=== PATIENT | male | born 1955 | race Caucasian/White ===

== ENCOUNTER 2019-07-04 14:04 | Observation (INO) | payer BC, OTHER ==
[2019-07-04] MEDS ORDERED: NS 0.9% 1000 ML** 1,000 ML IV ONE (14:10)
[2019-07-04] MEDS ORDERED: Iodixanol* (CONTRAST) 320 MG/ML 100 ML SDV IV ONE (14:30)
[2019-07-04 14:36] LABS: ABS Basophils 0.1 10^3/ul (0-0.2); ABS Eosinophils 0.1 10^3/ul (0-0.6); ABS Lymphocytes 2.1 10^3/ul (1.0-4.8); ABS Monocytes 0.8 10^3/ul (0-0.8); ABS Neutrophils 3.1 10^3/ul (1.5-7.7); Eosinophil % 2.4 %; Hematocrit 44 % (42-52); Hemoglobin 14.5 g/dL (14.0-18.0); Lymphocyte % 33.7 %; Mean Corpuscular HGB Conc 33 g/dL (31-36); Mean Corpuscular Hemoglobin 29 pg (27-31); Mean Corpuscular Volume 86 fL (80-94); Mean Platelet Volume 8.3 fL (7.4-10.4); Nucleated Red Blood Cells % 0.1; Platelet Count 286 10^3/uL (150-450); Red Blood Count 5.06 10^6 /uL (4.18-5.48); Red Cell Distribution Width 15 % (10-15); White Blood Count 6.1 10^3/uL (3.5-10.8)
[2019-07-04 14:44] LABS: Activated Partial Thrombo Time 36.2 seconds (26.0-38.0); INR 0.96 (0.82-1.09)
[2019-07-04] MEDS ORDERED: Clopidogrel TAB* 75 MG PO ONE (14:47)
[2019-07-04] MEDS ORDERED: Aspirin 81 mg CHEW TAB* 81 MG TAB.CHEW PO ONE (14:47)
[2019-07-04 14:54] LABS: Albumin 4.6 g/dL (3.2-5.2); Albumin/Globulin Ratio 1.8 (1-3); BUN/Creatinine Ratio 18.4 (8-20); EGFR African American 107.9 (>60); EGFR Non-African American 89.2 (>60); Globulin 2.5 g/dL (2-4); HDL Cholesterol 46.6 mg/dL; Potassium 3.7 mmol/L (3.5-5.0); Total Bilirubin 0.4 mg/dL (0.2-1.0); Total Protein 7.1 g/dL (6.4-8.9)
--- NOTE | 2019-07-04 15:19 | ED ---
Neurological HPI - HPI Summary HPI Summary: Patient is a 63 y/o M presenting to the ED for a chief complaint of neurological deficit. Patient states that he was at lunch with his friends when around 13:30, he began to see "stars" in his peripheral vision and had left- sided facial numbness and pressure. He states his symptoms had a sudden onset and felt like a "burst." Patient denies any myalgia, headache, numbness, paresthesia, or weakness in any of his extremities. Any aggravating or alleviating factors are denied. 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 FMHx is significant for factor 5 leiden. He reports he is supposed to take aspirin, but he denies taking aspirin. Patient denies taking any new medications. Allergies noted. Medications reviewed. - History of Current Complaint Chief Complaint: EDNeurologicalDeficit Stated Complaint: STROKE LIKE SYMPTOMS Hx Obtained From: Patient Onset/Duration: Sudden Onset, Started minutes ago - 45 minutes PHARMACIST'S AIDE Timing: Sudden Onset Onset Severity: Moderate Current Severity: Moderate Neurological Deficit Location: Facial Pain Intensity: 0 Pain Scale Used: 0-10 Numeric Character: Numbness/Tingling - Left sided facial Aggravating: Nothing Alleviating: Nothing Associated Signs and Symptoms: Positive: Visual Changes - "Stars" in left peripheral vision, Numbness - Left sided facial TPA Considered: No - Allergy/Home Medications Allergies/Adverse Reactions: Allergies Allergy/AdvReac Type Severity Reaction Status Date / Time No Known Allergies Allergy Verified 07/04/19 14:30 Home Medications: Home Medications Ibuprofen TAB* [Advil TAB*] 200 mg PO Q6H PRN 07/04/19 [History Confirmed ] PMH/Surg Hx/FS Hx/Imm Hx Previously Healthy: Yes Endocrine/Hematology History: Denies: Hx Anticoagulant Therapy Sensory History: Denies: Hx Legally Blind, Hx Deafness Opthamlomology History: Denies: Hx Legally Blind EENT History: Denies: Hx Deafness Neurological History: Reports: Other Neuro Impairments/Disorders - Sixth cranial nerve infection - Surgical History Surgical History: None Surgery Procedure, Year, and Place: None Infectious Disease History: No Infectious Disease History: Denies: Traveled Outside the [place] in Last 30 Days - Family History Known Family History: Positive: Other - Factor 5 leiden - Social History Occupation: Employed Full-time Lives: With Family Alcohol Use: Occasionally Hx Substance Use: No Substance Use Type: Reports: None Hx Tobacco Use: Yes Smoking Status (MU): Former Smoker Review of Systems Positive: Other - Positive "stars" in left peripheral vision Negative: Myalgia Positive: Numbness - Left sided facial. Negative: Headache, Weakness, Paresthesia All Other Systems Reviewed And Are Negative: Yes Physical Exam - Summary Physical Exam Summary: Constitutional: Well-developed, Well-nourished, Alert. (-) Distressed Skin: Warm, Dry HENT: Normocephalic; Atraumatic Eyes: Conjunctiva normal Neck: Musculoskeletal ROM normal neck. (-) JVD, (-) Stridor, (-) Tracheal deviation Cardio: Rhythm regular, rate normal, Heart sounds normal; Intact distal pulses. Radial pulses are 2+ and symmetric. (-) Murmur Pulmonary/Chest wall: Effort normal. (-) Respiratory distress, (-) Wheezes, (-) Rales Abd: Soft. (-) Tenderness, (-) Distension, (-) Guarding, (-) Rebound Musculoskeletal: (-) Edema Lymph: (-) Cervical adenopathy Neuro: Alert, Oriented x3, Strength normal, Cranial nerves II-XII are grossly intact. (-) Dysmetria, (-) Nystagmus, (-) Ataxia by finger to nose testing, (-) Sensory deficit. Psych: Mood and affect Normal Triage Information Reviewed: Yes Vital Signs On Initial Exam: Initial Vitals Temp Pulse Resp BP Pulse Ox 98 F 55 16 141/93 96 07/04/19 14:28 07/04/19 14:28 07/04/19 14:28 07/04/19 14:28 07/04/19 14:28 Vital Signs Reviewed: Yes Procedures - Sedation Patient Received Moderate/Deep Sedation with Procedure: No Diagnostics - Vital Signs Vital Signs Temp Pulse Resp BP Pulse Ox 07/04/19 14:32 95 07/04/19 14:28 98 F 55 16 141/93 96 - Laboratory Lab Results: Lab Results 07/04/19 07/04/19 07/04/19 Range/Units 14:11 14:20 14:20 WBC 6.1 (3.5-10.8) 10^3/uL RBC 5.06 (4.18-5.48) 10^6 /uL Hgb 14.5 (14.0-18.0) g/dL Hct 44 (42-52) % MCV 86 (80-94) fL MCH 29 (27-31) pg MCHC 33 (31-36) g/dL RDW 15 (10-15) % Plt Count 286 (150-450) 10^3/uL MPV 8.3 (7.4-10.4) fL Neut % (Auto) 50.4 % Lymph % (Auto) 33.7 % Kidder % (Auto) 12.3 % Eos % (Auto) 2.4 % Baso % (Auto) 1.2 % Absolute Neuts (auto) 3.1 (1.5-7.7) 10^3/ul Absolute Lymphs (auto) 2.1 (1.0-4.8) 10^3/ul Absolute Monos (auto) 0.8 (0-0.8) 10^3/ul Absolute Eos (auto) 0.1 (0-0.6) 10^3/ul Absolute Basos (auto) 0.1 (0-0.2) 10^3/ul Absolute Nucleated RBC 0.0 10^3/ul Nucleated RBC % 0.1 ESR Pending INR (Anticoag Therapy) 0.96 (0.82-1.09) APTT 36.2 (26.0-38.0) seconds Sodium (135-145) mmol/L Potassium (3.5-5.0) mmol/L Chloride (101-111) mmol/L Carbon Dioxide (22-32) mmol/L Anion Gap (2-11) mmol/L BUN (6-24) mg/dL Creatinine (0.67-1.17) mg/dL Est GFR ( Amer) (>60) Est GFR (Non-Af Amer) (>60) BUN/Creatinine Ratio (8-20) Glucose (70-100) mg/dL POC Glucose (mg/dL) 123 H (70-100) mg/dL Lactic Acid (0.5-2.0) mmol/L Calcium (8.6-10.3) mg/dL Total Bilirubin (0.2-1.0) mg/dL AST (13-39) U/L ALT (7-52) U/L Alkaline Phosphatase (34-104) U/L Troponin I (<0.03) ng/mL Total Protein (6.4-8.9) g/dL Albumin (3.2-5.2) g/dL Globulin (2-4) g/dL Albumin/Globulin Ratio (1-3) Triglycerides mg/dL Cholesterol mg/dL LDL Cholesterol mg/dL LDL Cholesterol Direct HDL Cholesterol mg/dL 07/04/19 07/04/19 Range/Units 14:20 14:20 WBC (3.5-10.8) 10^3/uL RBC (4.18-5.48) 10^6 /uL Hgb (14.0-18.0) g/dL Hct (42-52) % MCV (80-94) fL MCH (27-31) pg MCHC (31-36) g/dL RDW (10-15) % Plt Count (150-450) 10^3/uL MPV (7.4-10.4) fL Neut % (Auto) % Lymph % (Auto) % Kidder % (Auto) % Eos % (Auto) % Baso % (Auto) % Absolute Neuts (auto) (1.5-7.7) 10^3/ul Absolute Lymphs (auto) (1.0-4.8) 10^3/ul Absolute Monos (auto) (0-0.8) 10^3/ul Absolute Eos (auto) (0-0.6) 10^3/ul Absolute Basos (auto) (0-0.2) 10^3/ul Absolute Nucleated RBC 10^3/ul Nucleated RBC % ESR INR (Anticoag Therapy) (0.82-1.09) APTT (26.0-38.0) seconds Sodium 138 (135-145) mmol/L Potassium 3.7 (3.5-5.0) mmol/L Chloride 103 (101-111) mmol/L Carbon Dioxide 27 (22-32) mmol/L Anion Gap 8 (2-11) mmol/L BUN 16 (6-24) mg/dL Creatinine 0.87 (0.67-1.17) mg/dL Est GFR ( Amer) 107.9 (>60) Est GFR (Non-Af Amer) 89.2 (>60) BUN/Creatinine Ratio 18.4 (8-20) Glucose 87 (70-100) mg/dL POC Glucose (mg/dL) (70-100) mg/dL Lactic Acid 1.7 (0.5-2.0) mmol/L Calcium 9.0 (8.6-10.3) mg/dL Total Bilirubin 0.40 (0.2-1.0) mg/dL AST 19 (13-39) U/L ALT 18 (7-52) U/L Alkaline Phosphatase 62 (34-104) U/L Troponin I 0.00 (<0.03) ng/mL Total Protein 7.1 (6.4-8.9) g/dL Albumin 4.6 (3.2-5.2) g/dL Globulin 2.5 (2-4) g/dL Albumin/Globulin Ratio 1.8 (1-3) Triglycerides 425 mg/dL Cholesterol 223 mg/dL LDL Cholesterol mg/dL LDL Cholesterol Direct Pending HDL Cholesterol 46.6 mg/dL Result Diagrams: 07/04/19 14:20 07/04/19 14:20 Lab Statement: Any lab studies that have been ordered have been reviewed, and results considered in the medical decision making process. - Radiology Chest X-ray Radiology Interpretation Completed By: Radiologist Summary of Radiographic Findings: Chest X-ray IMPRESSION: NO ACTIVE CARDIOPULMONARY DISEASE. Reviewed by Dr. Issa. - CT Brain CT CT Interpretation Completed By: Radiologist Summary of CT Findings: Brain CT IMPRESSION: 1. NO ACUTE INTRACRANIAL PATHOLOGY. 2. MILD SINUS MUCOSAL INFLAMMATORY DISEASE, WITH AIR-FLUID LEVELS IN THE MAXILLARY SINUSES BILATERALLY. IN THE CORRECT CLINICAL SETTING, THIS MAY REPRESENT ACUTE SINUSITIS. Reviewed by Dr. Issa. Head CTA CT Interpretation Completed By: Radiologist Summary of CT Findings: Head CTA IMPRESSION: 1. No acute intracranial abnormality (MRI is more sensitive for acute infarct). 2. No large vessel occlusion or severe stenosis in the head or neck. 3. 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 4. Anatomic variants as above. Reviewed by Dr. Issa. - EKG 14:28 Cardiac Rate: Bradycardia - 55 BPM EKG Rhythm: Sinus Bradycardia ST Segment: Normal Ectopy: None Summary of EKG Findings: EKG at 14:28 shows sinus bradycardia with 55 BPM, no ischemic changes, no STEMI. Reviewed and interpreted by Dr. Issa. NIH Scale - NIH Scale Level of Consciousness: Alert/Keenly Responsive Ask Patient the Month and His/Her Age: Both Correct Ask Pt to Open/Close Eyes and Wafer Polisher/Release Non-Paretic Hand: Both Correctly Best Gaze (Only Horizontal Eye Movement): Normal Visual Field Testing: No Visual Loss Facial Paresis-Pt to Smile & Close Eyes or Grimace Symmetry: Normal/Symmetrical Motor Function - Right Arm: No Drift-Holds 10 Seconds Motor Function - Left Arm: No Drift-Holds 10 Seconds Motor Function - Right Leg: No Drift-Holds 10 Seconds Motor Function - Left Leg: No Drift-Holds 10 Seconds Limb Ataxia-Must be out of Proportion to Weakness Present: Absent Sensory (Use Pinprick to Test Arms/Legs/Trunk/Face): Normal Best Language (Describe Picture, Name Items): No Aphasia Dysarthria (Read Several Words): Normal Extinction and Inattention: No Abnormality Total Score: 0 Course/Dx - Course Course Of Treatment: Patient is here 45 minutes after a possible TIA. Patient had peripheral vision deficits on the left side with left facial pressure. Patient had an NIH scale 0 upon arrival. Patient had a CT brain and CTA which were both negative for anything abnormal outside of a 1 mm aneurysm. Patient was seen by neurology who wanted patient admitted for further workup. - Diagnoses Provider Diagnoses: CVA (cerebral vascular accident), Peripheral visual field defect During the Visit The Following Alert/Code Occurred: Modesto Bhatia - [facility] AT [facility]. LAST KNOWN WELL TIME IS 13:30 ON 07/04/19. MODESTO BHATIA CALLED 14:[address] ISSA PRESENT TO ASSESS THE PATIENT AT 14:06. AT 14:09, DR. DAWKINS IS PRESENT TO ASSESS THE PATIENT. AT 14:11, PATIENT IS TAKEN TO THE CT SUITE. AT 14:23, DR. PAINTING RECOMMENDS CITRATE LEVEL, MRI, ECHOCARDIOGRAM, AND VENOUS DOPPLER STUDY. HE ALSO RECOMMENDS PLAVIX AND ASPIRIN. PATIENT IS NOT ON BLOOD THINNERS. AT 14:58, RADIOLOGY REPORTED CT RESULTS. TPA CANDIDATE? NO. REASON: NIH STROKE SCALE IS 0. - Physician Notifications Discussed Care Of Patient With: Chrissie Wang - At 15:06, Dr. Wang agrees to admit the patient to [facility]. AT 14:23, DR. PAINTING RECOMMENDS CITRATE LEVEL, MRI , ECHOCARDIOGRAM, AND VENOUS DOPPLER STUDY. HE ALSO RECOMMENDS PLAVIX AND ASPIRIN. PATIENT IS NOT ON BLOOD THINNERS. Time Discussed With Above Provider: 15:06 Instructed by Provider To: Admit As Inpatient Discharge ED - Sign-Out/Discharge Documenting (check all that apply): Patient Departure - Admit - Discharge Plan Condition: Stable Disposition: ADMITTED TO [facility] - Billing Disposition and Condition Condition: STABLE Disposition: Admitted to [facility] - Attestation Statements Document Initiated by Scribe: Yes Documenting Scribe: Gena Cotto Provider For Whom Scribe is Documenting (Include Credential): Nixon Issa MD Scribe Attestation: Gena De Leon scribed for Nixon Issa MD on 07/04/19 at 1734. Scribe Documentation Reviewed: Yes Provider Attestation: The documentation as recorded by the Gena moran accurately reflects the service I personally performed and the decisions made by Nixon soto MD Status of Scribe Document: Viewed
[2019-07-04 16:02] LABS: Urine Appearance Clear; Urine Bilirubin Negative (Negative); Urine Blood Negative (Negative); Urine Color Straw; Urine Glucose Negative (Negative); Urine Ketones Negative (Negative); Urine Nitrite Negative (Negative); Urine Protein Negative (Negative); Urine Specific Gravity 1.032 (1.010-1.030); Urine Urobilinogen Negative (Negative)
[2019-07-04] MEDS ORDERED: Ondansetron INJ* 2 MG/ML VIAL IV PRN (16:18)
[2019-07-04] MEDS ORDERED: Acetaminophen TAB* 325 MG PO PRN (16:18)
[2019-07-04 17:18] LABS: Erythrocyte Sed Rate 1 mm/Hr (0-19)
--- NOTE | 2019-07-04 17:26 | CONS ---
CONSULTATION REPORT: DATE OF CONSULT: 07/04/19 PATIENT OF: Dr. Palacios as well as Dr. Lee. HISTORY OF PRESENT ILLNESS: This is a 63-year-old right-handed man I am asked to evaluate for possible TIA. At about 1:20 this afternoon, out of the blue he developed sparkling in his left visual field. He thinks both eyes, but it is not clear. He had a warmth feeling over his body and a pressure headache in the right side. These symptoms lasted less than 10 minutes and he is back to normal since. His history is significant for factor V Leiden deficiency with both parents dying of pulmonary embolus from a DVT at different ages. He had a deep vein thrombosis in 2012. 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 PAST MEDICAL HISTORY: He is otherwise in good health. PAST SURGICAL HISTORY: There have been no surgeries. MEDICATIONS: He is supposed to be on aspirin, but does not take it. ALLERGIES: He has no known allergies. SOCIAL HISTORY: He does not smoke, drink, or use any illicit substances. REVIEW OF SYSTEMS: His review of systems in all 14 spheres is negative other than the HPI. PHYSICAL EXAM: He is afebrile, pulse of 80, respirations 16, blood pressure has not been entered yet. On exam, he had NIH Stroke Scale of 0 done at 2:30. He was alert and oriented with normal speech and comprehension. He had normal visual victor, but he had subjectively off to the far left a feeling that things were not quite as sharp. 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 Cranial nerves II through XII were normal other than the slight subjective blurriness off to his far peripheral vision. He had no temporal tenderness. Motor exam revealed normal tone, strength, coordination. Reflexes were 1+ and equal with downgoing toes. Sensation intact to light touch and double simultaneous stimulation. [id number] and [id number] were intact. Chest: Clear. Cardiovascular: Regular rate and rhythm. Abdomen is soft with positive bowel sounds. DIAGNOSTIC STUDIES/LAB DATA: His CT and CTA head and neck were normal. Labs are pending. I have asked for a sed rate to be added. IMPRESSION AND PLAN: I discussed with Minor that he has had new onset of focal neurological symptoms consisting of sparkling in his left visual field, which most likely represents transient dysfunction of his right occipital lobe. At his age, this is more likely ischemic rather than migrainous especially since he has no prior history of migraines and he has not been on anything that would have provoked a migrainous headache. Especially with his history of factor V Leiden deficiency and a past deep vein thrombosis, we are starting him on aspirin and Plavix following a swallowing eval, and he will have a workup including echo with bubble study and screening him for deep vein thrombosis. He will also have an MRI scan. I would have him on aspirin and Plavix for a month and then have him on just aspirin. There has been no history of atrial fibrillation. [id number]/[facility] #: [id number] LORRAINE
--- NOTE | 2019-07-04 17:46 | ECHO ---
*[facility]* [place] [address] Fax #: [phone] Transthoracic Echocardiogram Patient: Minor Camejo : 1955 Study Date: 07/04/2019 Age: 63 Gender: M HR: 46 bpm Height: 70 in /177.8 cm BSA: 2.1 m^2 Weight: 201.6 lb /91.6 kg BMI: 29 kg/m^2 *Purchasing Internship: * [facility] *Referring Physician: * Nixon Lugo *Reading Physician: * Juan R Luu MD Indications: CVA. History: No known cardiac history. Conclusions Summary: - Left ventricle: Systolic function is normal. The estimated ejection fraction is 60-65%. - Atrial septum: A PFO is not demonstrated by color Doppler or agitated saline contrast. - Mitral valve: There is trace regurgitation. - Aortic valve: There is trace regurgitation. Study data: Transthoracic echocardiogram. Procedure: Transthoracic echocardiography was performed. Image quality was fair. A bubble study was performed. Complete 2D, spectral Doppler, and color flow Doppler. Location: Emergency department. Patient status: Inpatient. Patient room number: ED-05. No prior study is available for comparison. Rhythm: Bradycardia. Findings Left ventricle: The cavity size is normal. Wall thickness is at the upper limits of normal. Systolic function is normal. The estimated ejection fraction is 60-65%. Wall motion is normal; there are no regional wall motion abnormalities. There is no consistent Doppler evidence of clinically significant diastolic dysfunction. Right ventricle: The cavity size is moderately dilated. Systolic function is normal. Ventricular septum: The outflow septum has a sigmoid appearance. Left atrium: The atrium is normal in size. Right atrium: The atrium is at the upper limits of normal in size. Atrial septum: A PFO is not demonstrated by color Doppler or agitated saline contrast. Negative Bubble Study. Images 94 and 95. Mitral valve: The leaflets are mildly thickened. There is no evidence of stenosis. There is trace regurgitation. Aortic valve: The valve is trileaflet. The leaflets are normal thickness. There is no evidence of stenosis. There is trace regurgitation. Tricuspid valve: The leaflets are normal thickness. There is no evidence of stenosis. There is physiologic regurgitation. Pulmonic valve: The leaflets are normal thickness. There is no evidence of stenosis. There is trace regurgitation. Aorta: Aortic root: The aortic root is appears normal. Ascending aorta: The ascending aorta is appears normal. Aortic arch: The aortic arch is appears normal. Pericardium: There is no significant pericardial effusion. Pulmonary arteries: The main pulmonary artery is normal-sized. Systolic pressure can not be accurately estimated. Systemic veins: Inferior vena cava: The vessel is normal in size. There is (>= 50%) respiratory change in the IVC dimension. Measurements Left ventricle Value Ref Aortic valve Value Ref BARBARA, LAX 4.5 cm 4.2 - 5.8 Romi diam, ED 2.3 cm ---- ESD, LAX 2.5 cm 2.5 - 4.0 Peak v, S 1.76 m/sec ---- FS, LAX (H) 48 % 25 - 43 VTI, S 33.3 cm ---- PW, ED, LAX 1.0 cm 0.6 - 1.0 Mean grad, S 6.0 mm Hg ---- FS (H) 48 % 25 - 43 Peak grad, S 12.0 mm Hg ---- PW, ED 1.0 cm 0.6 - 1.0 LVOT/AV, VTI ratio 0.78 ---- E', lat romi, TDI 11.7 cm/sec >=10.0 E/e', lat romi, 7 Mitral valve Value Ref TDI Peak E 0.83 m/sec ---- E', med romi, TDI (L) 6.6 cm/sec >=7.0 Peak A 0.7 m/sec -- -- E/e', med romi, 13 Decel time 197 ms ---- TDI Peak grad, D 2.8 mm Hg ---- E', avg, TDI 9.2 cm/sec Peak E/A ratio 1.2 ---- E/e', avg, TDI 9 <=14 Pulmonic valve Value Ref LVOT Value Ref Peak v, S 1.09 m/sec ---- Peak anette, S 1.36 m/sec Peak grad, S 5.0 mm Hg ---- VTI, S 26.0 cm Peak grad, S 7 mm Hg Aortic root Value Ref Mean grad, S 4 mm Hg Root diam 3.2 cm <4.2 Ventricular septum Value Ref Ascending aorta Value Ref IVS, ED 1.0 cm 0.6 - 1.0 AAo AP diam, S 3.4 cm ---- Right ventricle Value Ref Aortic arch Value Ref BARBARA, LAX 3.0 cm Arch diam 2.2 cm ---- BARBARA minor ax, A4C (H) 4.4 cm 1.9 - 3.5 mid Decending aorta Value Ref Trung peak anette 0.89 m/sec ---- Left atrium Value Ref AP dim, ES 3.90 cm 3.00 - Inferior vena cava Value Ref 4.00 Diam 1.7 cm ---- ML dim, A4C 5.1 cm SI dim, A4C 4.9 cm Vol/bsa, ES, 1-p 23 ml/m^2 12 - 37 A4C Vol/bsa, ES, A/L 31 ml/m^2 16 - 34 Right atrium Value Ref SI dim, ES 5.1 cm 3.4 - 5.3 ML dim, ES, A4C 4.4 cm 2.6 - 4.4 Estimated RAP 3 mm Hg Legend: (L) and (H) lenny values outside specified reference range. Prepared and electronically signed by Juan R Luu MD 07/04/2019 17:45
--- NOTE | 2019-07-04 19:52 | HP ---
AMENDED REPORT NOW INCLUDES DESIGNATED COSIGNER CC: Dr. Lee * MEDICINE HISTORY AND PHYSICAL: DATE OF ADMISSION: 07/04/19 PROVIDER: Christ Villalba NP. ATTENDING PHYSICIAN: Dr. Chrissie Wang * (dictated by Christ Villalba NP). PRIMARY CARE PHYSICIAN: Dr. Chilango Lee. CONSULTING NEUROLOGIST: Dr. Levi Kelly. CHIEF COMPLAINT: Left-sided facial numbness. HISTORY OF PRESENT ILLNESS: Mr. Camejo is a 63-year-old male who presented to the ER today at approximately 2:10 p.m. and was deemed a Code Quintana upon arrival with concern for a neurological deficit. Mr. Camejo states that he was out eating lunch at a restaurant when at approximately 13:30 he noticed a sudden onset of feeling a popping to his left face and noticed left visual "fireworks" to his peripheral visual field, he then noticed some pressure to the left side of his face as well as numbness. He became very anxious. He left the restaurant, drove home, tried to contact his PCP and then, after not being able to reach them, drove himself to the ER. Here in the ER, Code Quintana was initiated , and he was seen in consultation by Neurology. He had an initial NIH Stroke Scale of 0. He was not given TPA but was given aspirin and Plavix. He has had both CT of the brain and CTA of the head so far, which showed no acute intracranial pathology. The CT of his brain did show mild signs and symptoms of inflammatory disease with air-fluid levels in the maxillary sinuses bilaterally. CTA showed no large vessel occlusion or severe stenosis in the head or neck. 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 He had an EKG that showed sinus bradycardia with no ischemic changes and a chest x-ray that showed no active cardiopulmonary disease. Given these findings, Hospital Medicine was consulted for admission. PAST MEDICAL HISTORY: Includes: 1. 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 2. DVT of the left lower extremity with question of DVT in the right lower extremity in the summer of 2012. He was treated with Coumadin for 1 year. 3. Heterozygous factor V Leiden. 4. Depression. MEDICATIONS: Ibuprofen 200 mg p.o. q.6 hours p.r.n. He states that he should be on a baby aspirin, but has not been taking this. ALLERGIES: No known allergies. FAMILY HISTORY: He reports a sister with factor V Leiden homozygous and both of his parents are , both from PE, DVT complications. SOCIAL HISTORY: He endorses a 22-year smoking history where he smoked approximately 1 pack per day tapering down towards the end of his pen smoking. He quit at age 42. He reports occasional alcohol use usually 1 to 3 drinks a week. He reports occasional marijuana use. 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 His domestic partner Nahomy Staples is his surrogate decision maker in the event of emergency. She can be reached at [phone]. REVIEW OF SYSTEMS: Constitutional: No fevers. He reports 1 to 2 days of malaise with sneezing and then states that these symptoms resolved, it occurred last week. HEENT: Visual complaints as per above. Denies hearing changes, dysphagia, sore throat. Lungs: No shortness of breath, denies hemoptysis, denies cough. Cardiovascular: Denies chest pain, denies edema, but reports occasional leg cramping and tightness at nighttime that is intermittent. Gastrointestinal: Denies abdominal pain, nausea, vomiting, or diarrhea. Genitourinary: Denies dysuria or hematuria. Musculoskeletal: Reports joint pain last evening, states that this does occur occasionally, reports that he recently walked 6 miles the day before yesterday. Skin: Denies rashes or lesions. Neuro: Reports left-sided numbness and left peripheral visual changes. Psych: Reports history of depression, denies any anxiety or psychosis. PHYSICAL EXAMINATION GENERAL: This is a 63-year-old male, appeared younger than stated age sitting up in the ED stretcher, in no acute distress. VITAL SIGNS: Temp 98, heart rate 58, respiratory rate 18, blood pressure 118/17 , O2 saturation is 96% on room air. HEENT: Head is atraumatic, normocephalic. Pupils are equal, round, and reactive to light and accommodation. Extraocular movements intact. Oral mucosa is moist. NECK: Supple without JVD or lymphadenopathy. No carotid bruits auscultated. LUNGS: Clear to auscultation bilaterally. CARDIAC: Regular rate and rhythm. Normal S1, S2 heart sounds. Distal pulses are 2+ and symmetric in the radial, posterior tibialis and dorsalis pedis sites. No peripheral edema noted. No murmur appreciated. ABDOMEN: Soft, nontender, nondistended with normoactive bowel sounds. MUSCULOSKELETAL: Without clubbing or cyanosis. Full range of motion to all 4 extremities. NEURO: Alert and oriented x3. Strength is 5/5 in the upper and lower extremities. [place] are symmetric. [id number] is intact. Cranial nerves II through XII are grossly intact. [id number] is intact. PSYCH: Affect is appropriate. SKIN: Warm and dry. DIAGNOSTIC STUDIES/LAB DATA: CBC: WBC 6.1, hemoglobin 14.5, hematocrit 44, platelet count 286. INR 0.96. CMP: Sodium 138, potassium 3.7, chloride 103, carbon dioxide 27, BUN 16, creatinine 0.87, glucose 87, lactic acid 1.7, calcium 9.0, AST 19, ALT 18, alk phos 62, total bilirubin 0.4, troponin 0, triglycerides 425, cholesterol 223, LDL direct 156, HDL 46. Other test as per above. Old medical records not available for review. ASSESSMENT AND PLAN: This is a 63-year-old male with a past medical history significant for factor V Leiden heterozygous, who presents today with concern for left-sided facial numbness with peripheral visual changes that are concerning for transient ischemic attack. He will be admitted under OBV status to medicine floor. Plan is as follows: 1. Neurological deficit. Mr. Camejo presents with migraine type symptoms, which include left visual peripheral changes as well as left-sided facial pressure and numbness that has improved. This may represent a TIA. He has been seen by Neurology in the ER and was recommended to have an MRI, which has been ordered. It is pending. He is also recommended to continue on Plavix and aspirin, especially given his history of factor V Leiden heterozygous. We will continue his neurological checks. He is also ordered an echo with bubble study. He will be monitored on telemetry, and he is also ordered venous Dopplers, again given his history of previous DVT and factor V Leiden. I do note that he has recently eaten and had lipid profile, which has elevated triglycerides. I will recheck this tomorrow as a fasting test. He may benefit from initiation of statin therapy as well, but we will hold off on this until tomorrow his lipid profile is drawn. We will add on A1c. 2. Factor V Leiden heterozygous. He should follow up with his PCP outpatient for this. He will likely benefit from continuing on aspirin at the very least, but will likely end up being discharged on aspirin and Plavix with close follow up in the outpatient setting. 3. Depression. Continue supportive care. He does not take medications for this. 4. FEN: He is ordered a heart-healthy diet. 5. DVT prophylaxis: Subcu heparin. 6. Code status: He is a full code. TIME SPENT: Approximately 60 minutes was spent on this admission with greater than half that time spent [id number] with the patient obtaining history and physical, performing physical examination, and reviewing the plan of care. Plan of care was also reviewed with my attending, Dr. Wang, who is in agreement. CHRIST VILLALBA NP [id number]/[facility]PS #: [id number] LORRAINE
[2019-07-04] MEDS: Heparin VIAL(*) 5000 UNITS/ML VIAL (FIVE THOUSAND) SUBCUT SCH (21:59)
[2019-07-05] MEDS: Heparin VIAL(*) 5000 UNITS/ML VIAL (FIVE THOUSAND) SUBCUT SCH (06:00)
[2019-07-05 07:08] LABS: BUN/Creatinine Ratio 17.6 (8-20); Calcium 8.6 mg/dL (8.6-10.3); EGFR African American 130.1 (>60); EGFR Non-African American 107.5 (>60); HDL Cholesterol 45.4 mg/dL; Potassium 4.1 mmol/L (3.5-5.0)
--- NOTE | 2019-07-05 08:24 | PN ---
Subjective Date of Service: 07/05/19 Interval History: Mr. Camejo states that he continues to have a sensation of light pressure on the left side of his head but it is very subtle. He denies other complaint. He is eager for discharge to home. Objective Active Medications: Acetaminophen (Tylenol Tab*) 650 mg PO Q4H PRN Aspirin (Aspirin 81 Mg Chew Tab*) 81 mg PO DAILY ROMEO Clopidogrel Bisulfate (Plavix Tab*) 75 mg PO DAILY ROMEO Heparin Sodium (Porcine) (Heparin Vial(*)) 5,000 units SUBCUT Q8HR ROMEO Ondansetron HCl (Zofran Inj*) 4 mg IV Q6H PRN Vital Signs: Temp Pulse Resp BP Pulse Ox 98.6 F 86 16 119/66 96 07/04/19 23:35 07/04/19 23:35 07/04/19 23:35 07/04/19 23:35 07/04/19 23:35 Oxygen Devices in Use Now: None Appearance: Male lying in bed in NAD Eyes: No Scleral Icterus Ears/Nose/Mouth/Throat: Mucous Membranes Moist Respiratory: Symmetrical Chest Expansion and Respiratory Effort, Clear to Auscultation Cardiovascular: NL Sounds; No Murmurs; No JVD, No Edema Abdominal: NL Sounds; No Tenderness; No Distention Extremities: No Edema Skin: No Rash or Ulcers Neurological: Alert and Oriented x 3, NL Muscle Strength and Tone Nutrition: Taking PO's Result Diagrams: 07/04/19 14:20 07/05/19 06:17 Additional Lab and Data: . Assess/Plan/Problems-Billing Assessment: Mr. Camejo is a 63 yo M with a PMH of factor V leiden who was admitted on 07/04/19 with left sided vision changes and left facial numbness with concern for CVA/ TIA. - Patient Problems (1) TIA (transient ischemic attack) Comment: - CT brain and MRI brain negative, CTA head and neck without large vessel occlusion but did show 1mm aneurysm. Echo without PFO, no wall motion or valvular abnormalites, intact EF. LE doppler negative. No history of afib, none noted on telemetry - Appreciate neurology consultation - Plan for discharge on aspirin and plavix x 1 week, then aspirin only. - Plan to treated elevated lipids with moderate dose statin. (2) Aneurysm Comment: - 1mm to R ICA - Dr Kelyl recommends that patient follow up with Dr Trevino (neurosurgery) when he is in [place]. (3) Factor V Leiden Comment: - Plan for discharge on aspirin and plavix, then aspirin only after week, reviewed with Dr foote over the phone, no clear indication for more aggressive anticoagulation - History of DVT in the past - Plan for follow up with hematology to review risks and benefits of anticoagulation (4) DVT prophylaxis Comment: - Heparin SQ (5) Full code status Comment: Status and Disposition: OBV. Discharge to home
[2019-07-05] MEDS ORDERED: Clopidogrel TAB* 75 MG PO SCH (09:00)
[2019-07-05] MEDS ORDERED: Aspirin 81 mg CHEW TAB* 81 MG TAB.CHEW PO SCH (09:00)
[2019-07-05 11:34] VITALS: BP 140/84
--- NOTE | 2019-07-05 17:08 | PN ---
NEUROLOGY FOLLOWUP NOTE: DATE OF FOLLOWUP: 07/05/19 PATIENT OF: Manisha Dye NP and Dr. Chilango Lee. HISTORY: This is a neurological followup on this 63-year-old man who had left visual field symptoms and in the ER had subjective decrease in his periphery vision in his left side both eyes. He thinks he completely got better last night. He has no further symptoms. MEDICATIONS: Include: 1. Aspirin. 2. Plavix. PHYSICAL EXAMINATION: Temperature 97.6, pulse 58, respirations 16, blood pressure 148/84. He is alert and oriented with normal speech and comprehension. Cranial nerves II through XII were intact. He had no subjective decrease in his left visual field. Motor exam and strength was full. Chest: Clear. Cardiovascular: Regular rate and rhythm. Abdomen: Soft. I reviewed his MRI scan, which showed some mild white matter disease, most likely microvascular. His CTA showed a 1 mm aneurysm off of his carotid on the right side. His echo was normal as was his venous Doppler study of his legs. Labs include normal CBC, sed rate, INR, PTT. CMP was normal. Hemoglobin A1c was 5.4. His LDL was 121. UA was negative. I discussed this with Mr. Camejo and his at length that his symptoms at his age were probably a TIA rather than new onset of migraine headache that he should be on aspirin and Plavix for now since he has a small aneurysm and I am not sure that he had a TIA. We will just give him the aspirin and Plavix for the first week at the time of greatest risk and then have him on aspirin after that. I have spoken to the nurse practitioner who is going to double check with her attending, but she does not feel that he needs anything stronger than the aspirin with a past history of DVT, his history of factor V Leiden, and a probable TIA at this time. I discussed with him that he had some mild microvascular changes as well and we discussed with Manisha Dye about treating his elevated cholesterol. In terms of the aneurysm, I recommend that he follow up with Dr. Rowe within a month in [place] when he comes, but I discussed with him that the aneurysm is small, sometimes it is so small it could even just be a tortuous blood vessel, but that the vascular neurosurgeon may want to do further studies or followup studies, but it is unlikely he would need any intervention for this at this time. Thank you for sharing his case. [id number]/[facility] #: [id number] LORRAINE
--- NOTE | 2019-07-05 17:25 | DS ---
CC: Dr. Lee * DISCHARGE SUMMARY: DATE OF ADMISSION: 07/04/19 DATE OF DISCHARGE: 07/05/19 ATTENDING PHYSICIAN: Dr. Colon * (dictated provided by Manisha Dye NP). PRIMARY CARE PHYSICIAN: Dr. Lee. PRIMARY DIAGNOSIS: Transient ischemic attack. SECONDARY DIAGNOSES: 1. History of sixth cranial nerve infection 19 years ago. 2. History of deep vein thrombosis of the left extremity, nonprovoked, with question of deep vein thrombosis in the right lower extremity in the summer of 2012. 3. Heterozygous factor V Leiden. 4. Depression. MEDICATIONS: Outpatient: 1. Clopidogrel 75 mg p.o. daily x 7 days. 2. Atorvastatin 40 mg p.o. daily. 3. Aspirin 81 mg p.o. daily. HOSPITAL COURSE: Mr. Camejo is a 63-year-old male with a past medical history of factor V Leiden and DVT, who presented to the hospital on 07/04/19 with concern for transient changes to his left visual field and pressure and numbness to left side of his face. Please see dictated H and P from Kaylee Ceballos NP for complete details. In the emergency room, he had a stroke scale of 0. His workup showed CT brain, which showed "no acute intracranial pathology, mild sinus mucosal inflammatory disease with air-fluid levels in the maxillary sinuses bilaterally. He had a head and neck CTA, which showed "no acute intracranial abnormality, no large vessel occlusion or severe stenosis in the head or neck, a 1 mm right laterally directed aneurysm extends from the cavernous right ICA" and a brain MRI, which showed "no intracranial lesion is identified, no restriction or diffusion is noted, minor microvascular changes noted." The patient was seen in consultation by Dr. Kelly and I refer you to his note for complete details. In general, he felt that the patient's symptoms are most likely related to acute transient ischemia, reflective of a transient ischemic attack rather than any type of migrainous phenomenon. The reminder of his workup was negative including a transthoracic echocardiogram that showed no PFO, no wall motion or valvular abnormalities and an intact ejection fraction. The patient had a Doppler of his lower extremities, which also was negative showing "no evidence of deep vein thrombosis of either lower extremity is present." The patient was monitored on telemetry unit and no evidence of atrial fibrillation. He has had a slightly elevated lipid profile fasting; his triglycerides are 146, cholesterol 196, LDL 121, HDL 45.4. Dr. Kelly has recommended that the patient be discharged to home on 1 week of aspirin and Plavix. For the 1 mm aneurysm noted, he is to follow up with Dr. Rowe from [facility] neurosurgical team when he is here in [place]. He is to go on moderate dose atorvastatin for his elevated lipids. He will also be following up with the hematology team regarding further discussion about potential long-term anticoagulation and the risks and benefits associated with that. According to Hematology at this time, there is no direct indication to start anticoagulation. Mr. Camejo is ready for discharge to home. DISPOSITION: Home. DIET: Low fat, low salt. ACTIVITY: As tolerated. FOLLOWUP PLANS: 1. Please follow up with Dr. Rowe regarding the finding of a 1-mm aneurysm. The patient has been given his phone numbers to contact Dr. Rowe for appointment. 2. Follow up with Dr. Kelly, neurology, as needed. 3. Please follow up with Hematology regarding potential anticoagulation usp. 4. Please follow up with Dr. Lee per routine. TIME SPENT: Approximately 60 minutes was spent on the discharge of this patient , more than half time spent with the patient at the bedside reviewing the events leading up to and during this hospitalization, performing the physical examination, and reviewing my plan of care. MANISHA DYE NP [id number]/[facility] #: [id number] LORRAINE
== END 2019-07-05 14:30 | disposition home or self-care (01) ==
LOC: ED 14:04 → MEDTELE 16:18
PROVIDERS: ADMIT Hospitalist; ATTEND Internal Medicine
DX: G45.9 Transient cerebral ischemic attack, unspecified (principal); I72.9 Aneurysm of unspecified site; D68.51 Activated protein C resistance; F32.9 Major depressive disorder, single episode, unspecified; Z79.82 Long term (current) use of aspirin; Z79.899 Other long term (current) drug therapy; Z86.718 Personal history of other venous thrombosis and embolism; Z86.61 Personal history of infections of the central nervous system
CPT/HCPCS: 36415; 70450; 70496; 70498; 70551; 71045; 80048; 80053; 80061; 81003; 83036; 83605; 83721; 84484; 85025; 85610; 85652; 85730; 93005; 93306; 93970; 96360; 96361; 96372; 99284; A9270-GY; G0378; J1644; Q9967

== ENCOUNTER 2019-07-19 09:15 | Emergency (ER) | payer OTHER ==
--- OUTSIDE RECORDS SUMMARY | 2019-07-19 09:21 | XMS REPORT | Summary of Care ---
:1955 Author Organization [facility] Address [address] [place] [address] Care Team Providers Name Role Phone Chilango Lee Primary Care Provider Reason for Visit Reason Comments Transitional Care Management [facility] admit for obv, dx:TIA, 07/04-07/05 Encounter Details Date Type Department Care Team Description 07/08/2019 Office Visit [place] [facility] Chilango Lee, History of transient ischemic attack (TIA) (Primary Dx); Medicine MD History of deep vein thrombosis (DVT) of lower extremity; [address] Mixed hyperlipidemia; [place] [address] [place] [address] Factor V Leiden Mutation Carrier; [phone] Cerebral aneurysm Allergies Active Allergy Reactions Severity Noted Date Comments Penicillin G Potassium 12/10/2007 documented as of this encounter (statuses as of 07/08/2019) Medications Medication Sig Dispensed Refills Start Date End Date Status Aspirin 81 MG Oral DAILY. 0 07/05/2019 Active Tab EC atorvastatin EVERY DAY 0 07/05/2019 Active (LIPITOR) 40 MG Oral Tab clopidogrel Take 1 Tab 30 Tab 4 07/08/2019 Active (PLAVIX) 75 MG by mouth Oral Tab DAILY. clopidogrel EVERY DAY 0 07/05/2019 07/08/2019 Discontinued (PLAVIX) 75 MG (Reorder) Oral Tab documented as of this encounter (statuses as of 07/08/2019) Active Problems Problem Noted Date Family history of malignant melanoma 08/23/2016 Overview: Mother of melanoma Sister two with melonoma History of deep vein thrombosis (DVT) of lower extremity 01/30/2014 Mixed hyperlipidemia 12/19/2007 Depression, major, in remission 12/10/2007 Factor V Leiden Mutation Carrier 12/10/2007 Allergic rhinitis 12/10/2007 Family hx of colon cancer 12/10/2007 Overview: Last colonoscopy, 10/10/2004, one benign polyp. Next recommended 5(five) years. Replaced inactive diagnosis Diplopia 12/10/2007 Overview: 01/08/2001: Patient underwent extensive workup, ending with neuro-ophthalmology consult at [facility], Dr. Ivonne Winter. 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 Work-up found no demyelinating disease. Family history of vascular disease, possible microvascular sixth nerve palsy. 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 Pt now on ASA 162mg po qd per hematology. Managed by: [facility] Referring Provider: Josette Indication: DVT Target Range: 2.0-3.0 Duration: Not Indicated History of factor V leiden mutation carrier Ibuprofen increases bleeding risk Start of Anticoa01/30/14 Intial Referral: 01/30/14 Initial ACS Orders: 02/02/14 History of Pneumonia 12/10/2007 08/14/2012 Overview: 1988 and 1997. 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 Strained arch right foot, recommend foot support. Replaced inactive diagnosis Fatigue 12/10/2007 08/14/2012 Insomnia 12/10/2007 11/01/2018 Sciatica 12/10/2007 08/14/2012 Overview: Secondary to low back injury. Sixth cranial nerve injury 12/10/2007 08/14/2012 documented as of this encounter (statuses as of 07/08/2019) Immunizations Name Administration Dates Next Due Adacel TdaP 01/14/2007 Influenza (IM) Preservative Free 04/21/2019, 06/09/2015, 04/25/2010, 03/24/2008 Influenza (IM) W/Pres 03/18/2017 Influenza Vaccine Whole 04/08/2007 TDAP Vaccine 09/03/2017 Tuberculin Skin Test 01/14/2007 documented as of this encounter Social History Tobacco Use Types Packs/Day Years Used Date Former Smoker 10 Quit: 06/18/1989 Smokeless Tobacco: Never Used Alcohol Use Drinks/Week oz/Week Comments Yes 4 Standard drinks or equivalent 3.3 Sex Assigned at Date Recorded Not on file Job Start Date Occupation Industry Not on file Not on file Not on file Travel History Travel Start Travel End No recent travel history available. documented as of this encounter Last Filed Vital Signs Vital Sign Reading Time Taken Comments Blood Pressure 118/70 07/08/2019 1:58 PM EST Pulse 68 07/08/2019 1:58 PM EST Temperature 37.2 07/08/2019 1:58 PM EST C (98.9 F) Respiratory Rate 20 07/08/2019 1:58 PM EST Oxygen Saturation 96% 07/08/2019 1:58 PM EST Inhaled Oxygen Concentration - - Weight 92.7 kg (204 lb 6.4 oz) 07/08/2019 1:58 PM EST Height 179.1 cm (5' 10.5") 07/08/2019 1:58 PM EST Body Mass Index 28.91 07/08/2019 1:58 PM EST documented in this encounter Patient Instructions Patient InstructionsChilango Lee MD - 07/08/2019 2:00 PM ESTContinue the aspirin and plavix until you see Dr Enamorado I personally do not think you need more than aspirin 81 mg per day senior living See Dr Rowe for aneurysm Goal weight is 190 pounds Please reduce the fat and cholesterol in your diet. The three main sources of fat/cholesterol are: 1. Red meat 2. Dairy products 3. Eggs Fasting blood 2-3 months documented in this encounter Progress Notes Chilango Lee MD - 07/08/2019 2:00 PM EST TCM Statement. Review of the hospitalization: I am seeing for transition of care following hospitalization. The date of discharge was: 07/05/19 The discharge diagnosis was Transient ischemic attack left facial numbness, hyperlipidemia, factor V leiden carrier , history deep vein thrombosis and incidental right ICA aneurysm 1mm He feels fine now On aspirin plavix and atorvastatin No new neuro symptoms . Patient Active Problem List Diagnosis Depression, major, in remission (HCC) Factor V Leiden Mutation Carrier Allergic rhinitis Family hx of colon cancer Diplopia Personal History of Tobacco Use, Presenting Hazards to Health Mixed hyperlipidemia History of deep vein thrombosis (DVT) of lower extremity Family history of malignant melanoma Outpatient Medications Marked as Taking for the 07/08/19 encounter (Office Visit ) with Chilango Lee MD Medication Sig Dispense Refill Aspirin 81 MG Oral Tab EC DAILY. clopidogrel (PLAVIX) 75 MG Oral Tab Take 1 Tab by mouth DAILY. 30 Tab 4 I reviewed the discharge summary, discharge instructions, and pertinent additional documentation obtained during hospitalization. I reconciled the medications. I also reviewed the Transition of Care documentation done by staff. The tests that were not available at the time of discharge were reviewed. Additional tests which are not yet available include: None Exam BP 118/70 (BP Location: Right arm, Patient Position: Sitting) Pulse 68 Temp 98.9 F (37.2 C) (Tympanic) Resp 20 Ht 5' 10.5" (1.791 m) Wt 204 lb 6.4 oz (92.7 kg) SpO2 96% BMI 28.91 kg/m2 Cranial nerves are normal. Fundi are normal with sharp disc margins, no papilledema, hemorrhages or exudates noted. LAVELL. EOM's intact. Neck supple. No cranial or carotid bruits. Good carotid upstroke. DTR's, motor power and sensation normal and symmetric. Babinski sign absent. Mental status normal. Gait and station normal. Cerebellar function is normal. ICD-9-CM ICD-10-CM 1. History of transient ischemic attack (TIA) continue plavix aspirin and atorvastatin follow up Dr Enamorado V12.54 Z86.73 2. History of deep vein thrombosis (DVT) of lower extremity V12.51 Z86.718 3. Mixed hyperlipidemia low fat diet and repeat lipids 2-3 month 272.2 E78.2 LIPID PROFILE COMPREHENSIVE METABOLIC PANEL 4. Factor V Leiden Mutation Carrier 289.81 D68.51 5. Cerebral aneurysm 1 mm follow up neurosurgeon this is incidental 437.3 I67.1 Coordination of care. - I am satisfied that appropriate referrals are in place to deal with the problems identified during hospitalization, and that the patient has adequate community resources and support in place. I confirmed the patient's understanding of the diagnosis and plan of care. 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 The three main sources of fat/cholesterol are: 1. Red meat 2. Dairy products 3. Eggs Fasting blood 2-3 months The current and discharge medications were reconciled by me, today The source document was hospital discharge summary documented in this encounter Plan of Treatment Date Type Specialty Care Team Description 09/08/2019 Lab Internal Medicine Name Type Priority Associated Diagnoses Order Schedule LIPID PROFILE Lab Routine Mixed hyperlipidemia Expected: 07/08/2019 (Approximate), Expires: 01/04/2020 COMPREHENSIVE METABOLIC Lab Routine Mixed hyperlipidemia Expected: 2019 PANEL (Approximate), Expires: 01/04/2020 Health Maintenance Due Date Last Done Comments ZOSTER IMMUNIZATION SERIES 11/05/2007 (1 of 2) DEPRESSION SCREENING 11/02/2019 11/01/2018 DIABETES SCREENING 11/15/2019 11/14/2018, 10/24/2017, 06/25/2017, Additional history exists LIPID DISORDER SCREENING 07/07/2020 07/07/2019, 11/14/2018, 09/18/2017, Additional history exists Colonoscopy 11/01/2026 11/01/2016, 04/01/2015 (Postponed), 02/28/2010, Additional history exists DTaP/Tdap/Td Vaccines (2 - 09/04/2027 09/03/2017 Tdap) INFLUENZA VACCINE Completed 04/21/2019, 03/18/2017, 06/09/2015, Additional history exists HEPATITIS A IMMUNIZATION Aged Out No longer eligible SERIES based on patient's age to complete this topic HPV IMMUNIZATION SERIES Aged Out No longer eligible based on patient's age to complete this topic MENINGOCOCCAL VACCINE IMM Aged Out No longer eligible based on patient's age to complete this topic PNEUMOCOCCAL 0-64 YRS Aged Out No longer eligible based on patient's age to complete this topic documented as of this encounter Goals Goal Patient Goal Associated Recent Patient-Stated? Author Type Problems Progress Depression Depression No Rosa, screen (PHQ-9) Chilango Oneill, total score < 5 Note: This is an individualized treatment (depression) goal for Minor Camejo: Displayed above is your goal for a depression screening (PHQ-9) score that would indicate good control of your depression. Keep a regular sleep schedule Lifestyle No Chilango Lee MD Note: This is an individualized lifestyle goal for Minor Camejo: Please maintain a regular sleep schedule. This may help with some symptoms of depression. Take all prescribed medications as Self-management No Chilango Lee MD directed Note: This is an individualized self-management goal for Minor Camejo: Please take all prescribed medications as directed. 1. Do not skip doses. If you cannot afford your medications, talk with your doctor. 2. Use a pill reminder system such as a pill box if needed. Your pharmacist can help you with this. 3. Contact your Pharmacy 5 days before your medication runs out. If you cannot take your medications for any reasons, talk with your doctor. 4. Please bring all of your medication bottles and inhalers (or a list of all your medications/inhalers) with you to every visit. Potential barriers to meeting all of your care plan goals will continue to be addressed on an ongoing basis. documented as of this encounter Results Not on filedocumented in this encounter Visit Diagnoses Diagnosis History of deep vein thrombosis (DVT) of lower extremity Mixed hyperlipidemia Factor V Leiden Mutation Carrier Primary hypercoagulable state History of transient ischemic attack (TIA) Transient ischemic attack (TIA), and cerebral infarction without residual deficits Cerebral aneurysm Cerebral aneurysm, nonruptured documented in this encounter Insurance Payer Benefit Plan / Subscriber ID Effective Dates Phone Address Type Group [employer] AETCATHERINE PETERSON xxxxxxxxxx 2015-Present [employer] Guarantor Name Account Type Relation to Date of Phone Billing Patient Address Minor Camejo Personal/Family 1955 [address] (Home) [phone] [place], [place] (Work) [address] documented as of this encounter
[2019-07-19 09:23] VITALS: BP 145/84
--- NOTE | 2019-07-19 09:55 | UC ---
Skin Complaint HPI - HPI Summary HPI Summary: 63 yo male with right antecubital pain and swelling 2 weeks s/p IV hx DVT no f/c pain extends to mid upper arm Patient is left handed - History of Current Complaint Chief Complaint: UCSkin Time Seen by Provider: 07/19/19 09:19 Stated Complaint: SWOLLEN AREA ON ARM Hx Obtained From: Patient Onset/Duration: Gradual Onset Skin Exposure Onset/Duration: Hours Ago Timing: Constant Onset Severity: Mild Current Severity: Mild Pain Intensity: 3 Pain Scale Used: 0-10 Numeric Location: Other - see image Character: Swelling, Redness, Painful Aggravating Factor(s): Touch Alleviating Factor(s): Nothing Associated Signs & Symptoms: Positive: Negative - Allergy/Home Medications Allergies/Adverse Reactions: Allergies Allergy/AdvReac Type Severity Reaction Status Date / Time No Known Allergies Allergy Verified 07/19/19 09:24 PMH/Surg Hx/FS Hx/Imm Hx Previously Healthy: Yes Endocrine History: Dyslipidemia Neurological History: TIA - ?? Other History Of: Negative For: Anticoagulant Therapy - Surgical History Surgical History: None Surgery Procedure, Year, and Place: None - Family History Known Family History: Positive: Hypertension, Other - Factor 5 leiden - Social History Alcohol Use: Occasionally Substance Use Type: None Smoking Status (MU): Former Smoker Review of Systems All Other Systems Reviewed And Are Negative: Yes Constitutional: Positive: Negative Skin: Positive: Negative Eyes: Positive: Negative ENT: Positive: Negative Respiratory: Positive: Negative Cardiovascular: Positive: Negative Gastrointestinal: Positive: Negative Genitourinary: Positive: Negative Motor: Positive: Negative Neurovascular: Positive: Negative Musculoskeletal: Positive: Negative Neurological: Positive: Negative Psychological: Positive: Negative Physical Exam Triage Information Reviewed: Yes Appearance: Well-Appearing, No Pain Distress, Well-Nourished Vital Signs: Initial Vital Signs Temp 97.1 F 07/19/19 09:19 Pulse 69 07/19/19 09:19 Resp 16 07/19/19 09:19 BP 145/84 07/19/19 09:19 Pulse Ox 99 07/19/19 09:19 Vital Signs Reviewed: Yes Eyes: Positive: Conjunctiva Clear ENT: Positive: Hearing grossly normal, Uvula midline. Negative: Nasal congestion, Nasal drainage, Trismus, Muffled voice, Hoarse voice Dental Exam: Normal Neck: Positive: Supple, Nontender, No Lymphadenopathy Respiratory: Positive: Lungs clear, Normal breath sounds, No respiratory distress Cardiovascular: Positive: RRR, No Murmur Musculoskeletal: Positive: ROM Intact, Other: - aee image Neurological: Positive: Alert Psychological Exam: Normal Skin Exam: Other - see image Images Front/Back of Body, Lg (Johnson): 1 - red/swollen tender 2 - engorged veins/no palpable cords Diagnostics - Laboratory Lab Results: weekend- no u/s here strong family and personal hx DVT Course/Dx - Diagnoses Provider Diagnosis: Pain and swelling of right upper extremity Discharge ED - Sign-Out/Discharge Documenting (check all that apply): Patient Departure All imaging exams completed and their final reports reviewed: No Studies - Discharge Plan Condition: Stable Disposition: HOME-RECOMMEND TO ED Referrals: Chilango Lee MD [Primary Care Provider] - Additional Instructions: I suggest you go to the ER for further evaluation This may be superficial but given your history I suggest further investigation - Billing Disposition and Condition Condition: STABLE Disposition: Home-Recommend to ED
== END 2019-07-19 09:50 | disposition home health service (06) ==
LOC: UCEAST 09:15
DX: M79.601 Pain in right arm (principal); M79.89 Other specified soft tissue disorders; Z87.891 Personal history of nicotine dependence
CPT/HCPCS: 99212; G0463

== ENCOUNTER 2019-07-19 10:07 | Emergency (ER) | payer OTHER ==
--- NOTE | 2019-07-19 11:33 | ED ---
Upper Extremity Pain - HPI Summary HPI Summary: This patient is a 63 year old male presenting to [facility] with a chief complaint of pain and redness in his right forearm since yesterday. He is concerned for possible DVT in his R arm. He states he was recently here for TIA 2 weeks ago, and the location is where he had an IV. He denies any infiltration of the IV. He has a Hx of DVT in both lower extremities 7 years ago. He states he has genetic clotting problems. He denies any numbness. - History of Current Complaint Chief Complaint: EDExtremityUpper Stated Complaint: POSS DVT PER PT CAME FROM CC Time Seen by Provider: 07/19/19 11:25 Hx Obtained From: Patient Onset/Duration: Started Days Ago Pain Location: Forearm - Allergies/Home Medications Allergies/Adverse Reactions: Allergies Allergy/AdvReac Type Severity Reaction Status Date / Time No Known Allergies Allergy Verified 07/19/19 11:33 PMH/Surg Hx/FS Hx/Imm Hx Endocrine/Hematology History: Denies: Hx Anticoagulant Therapy Cardiovascular History: Reports: Hx Deep Vein Thrombosis Denies: Hx Pacemaker/ICD Sensory History: Reports: Hx Contacts or Glasses Denies: Hx Legally Blind, Hx Deafness, Hx Hearing Aid Opthamlomology History: Reports: Hx Contacts or Glasses Denies: Hx Legally Blind Neurological History: Reports: Other Neuro Impairments/Disorders - Sixth cranial nerve infection Psychiatric History: Denies: Hx Panic Disorder - Surgical History Surgery Procedure, Year, and Place: None Infectious Disease History: No Infectious Disease History: Denies: Traveled Outside the [place] in Last 30 Days - Family History Known Family History: Positive: Hypertension, Other - Factor 5 leiden - Social History Alcohol Use: Occasionally Hx Substance Use: No Substance Use Type: Reports: None Hx Tobacco Use: Yes Smoking Status (MU): Former Smoker Review of Systems Positive: Other - RUE pain Positive: Other - RUE redness Negative: Numbness All Other Systems Reviewed And Are Negative: Yes Physical Exam - Summary Physical Exam Summary: Constitutional: Well-developed, Well-nourished, Alert. (-) Distressed Skin: Warm, Dry HENT: Normocephalic; Atraumatic Eyes: Conjunctiva normal Neck: Musculoskeletal ROM normal neck. (-) JVD, (-) Stridor, (-) Tracheal deviation Cardio: Rhythm regular, rate normal, Heart sounds normal; Intact distal pulses; Radial pulses are 2+ and symmetric. (-) Murmur Pulmonary/Chest wall: Effort normal. (-) Respiratory distress, (-) Wheezes, (-) Rales Abd: Soft, (-) tenderness, (-) Distension, (-) Guarding, (-) Rebound Musculoskeletal: (-) Edema Lymph: (-) Cervical adenopathy Neuro: Alert, Oriented x3 Psych: Mood and affect Normal Triage Information Reviewed: Yes Vital Signs On Initial Exam: Initial Vitals Temp Pulse Resp BP Pulse Ox 97.6 F 63 15 109/64 97 07/19/19 10:08 07/19/19 10:08 07/19/19 10:08 07/19/19 10:08 07/19/19 10:08 Vital Signs Reviewed: Yes Procedures - Sedation Patient Received Moderate/Deep Sedation with Procedure: No Diagnostics - Vital Signs Vital Signs Temp Pulse Resp BP Pulse Ox 07/19/19 10:08 97.6 F 63 15 109/64 97 - Laboratory Lab Statement: Any lab studies that have been ordered have been reviewed, and results considered in the medical decision making process. - Ultrasound No standard instances Ultrasound Interpretation Completed By: Radiologist Summary of Ultrasound Findings: Venous Doppler Study LE. 1. Deep venous thrombosis (thrombus extends from the right basilic to the right brachial vein) . 2. Nodular thyroid incompletely imaged (recommend elective thyroid ultrasound ). ED Provider has reviewed this report. Course/Dx - Course Course Of Treatment: This patient is a 63 year old male presenting to [facility] with a chief complaint of pain and redness in his right forearm since yesterday. He is concerned for possible DVT in his R arm. US of arm reveals 1. Deep venous thrombosis (thrombus extends from the right basilic to the right brachial vein). 2. Nodular thyroid incompletely imaged (recommend elective thyroid ultrasound). Plan for discharge was discussed with the patient and he was agreeable with this plan. - Diagnoses Provider Diagnoses: DVT (deep venous thrombosis) - Physician Notifications Discussed Care of Patient With: Jarret Enamorado - [place]/Onc Time Discussed With Above Provider: 12:38 - Prescribe Eliquis Discharge ED - Sign-Out/Discharge Documenting (check all that apply): Patient Departure - Discharge - Discharge Plan Condition: Stable Disposition: HOME Prescriptions: Apixaban* [Eliquis*] 10 mg PO BID #14 tab Patient Education Materials: Deep Vein Thrombosis (ED) Referrals: Chilango Lee MD [Primary Care Provider] - Additional Instructions: Return to ED with new or worsening symptoms. - Billing Disposition and Condition Condition: STABLE Disposition: Home - Attestation Statements Document Initiated by Alex: Yes Documenting Scribe: Jarrett Jasso Provider For Whom Alex is Documenting (Include Credential): Cesar Palacios DO Scribe Attestation: IJarrett scribed for Cesar Palacios DO on 07/19/19 at 1321. Scribe Documentation Reviewed: Yes Provider Attestation: The documentation as recorded by the Jarrett moran accurately reflects the service I personally performed and the decisions made by Cesar soto DO Status of Scrlucretia Document: Viewed
[2019-07-19 13:24] VITALS: BP 151/87
== END 2019-07-19 13:20 | disposition home or self-care (01) ==
LOC: ED 10:07
DX: I82.621 Acute embolism and thrombosis of deep veins of right upper extremity (principal); E04.1 Nontoxic single thyroid nodule; Z86.73 Personal history of transient ischemic attack (TIA), and cerebral infarction without residual deficits; Z87.891 Personal history of nicotine dependence
CPT/HCPCS: 99283